=== PATIENT | male | born 1965 | race Caucasian/White ===

== ENCOUNTER 2019-10-21 02:40 | Observation (INO) ==
[2019-10-21 03:00] VITALS: BMI 29.1
[2019-10-21] MEDS ORDERED: CARDIZEM INJ 50 MG VIAL IVP ONE (03:08)
[2019-10-21] MEDS ORDERED: CARDIZEM INJ 50 MG VIAL ONE (03:12)
[2019-10-21] MEDS ORDERED: NS 1000 ML 1,000 ML ONE (03:13)
--- NOTE | 2019-10-21 03:17 | DR.MBACK ---
HPI - Time Seen Time seen: 03:07 - PCP Primary Care Physician: NFD - Complaint Chief Complaint Doctors Comments: Patient is complaining of sharp Left back and CVA pain getting progressively worst with the pain coming and going. States the pain is 9 of 10. States he has no local doctor and he has not gone to see a doctor in 5-7 years. States he is not taking any medicines. He denies tobacco use but states he drinks about five beers daily but denies drug use. He denies chest pain, SOB, nausea, vomiting or any recent trauma. He denies dysuria or hematuria. He denies cold or cough. States he woke up three hours ago with sharp left side pain with soreness in the upper part of his stomach. States he has some red bumps that his thinks is shingles. States he is not taking any medicines. Chief Complaint:: PT STATES" MY LT SIDE IS HURTING BAD IT FEELS REAL SORE AND I HAVE SHARP PAINS I GOT A RASH ON MY STOMACH NOT SURE WHAT IT IS" - Reviewed Nurses Notes Review: Yes - Source History Provided: Patient - Mode of Arrival Mode of Arrival: Ambulatory - Timing Onset of Chief Complaint: 10/19/19 - Duration Duration: Constant How lon Duration: Hours - Location Back Pain Location: Left, Flank Radiation To: None - Severity Severity: Moderate, Severe - Quality Quality: Sharp - Context Onset: Spontaneous Circumstance: Unknown History of: None - Modifying Factors Worsened By: None - Associated Signs and Symptoms Back Pain Symptoms: None Numbness: None Weakness: None PMH - PMH Past Medical History: No Past Surgical History: Yes Surgical History: Ortho Surgery - Family History History of Family Medical Conditions: No - Social History Type of Tobacco Use: None Does any household member use tobacco: No Alcohol Use: Occasionally Do you use any recreational Drugs:: No Lives With: Family Lives Where: Home - Travel Risk Coronavirus risk:travel/contact w/high risk person: No Has patient experienced Coronavirus symptoms: No - infectious screening Have you traveled outside the country in the last 6 months?: No Isolation: Standard ROS - Review of Systems Constitutional: No Symptoms Reported Eyes: No Symptoms Reported. negative: See HPI, Eye Pain, Blurred Vision, Tearing, Discharge, Photophobia, Diplopia, Other ENTM: No Symptoms Reported Respiratoy: No Symptoms Reported Cardiovascular: No Symptoms Reported Gastrointestinal/Abdominal: No Symptoms Reported, Abdominal Pain (LUQ pain on palpation). negative: See HPI, Constipation, Diarrhea, Nausea, Vomiting, Food Intolerance, Other Genitourinary: No Symptoms Reported Neurological: No Symptoms Reported Musculoskeletal: No Symptoms Reported, Back Pain, Left Integumentary: No Symptoms Reported, Lesions (red papules). negative: See HPI, Change in Color, Change in Hair/Nails, Dryness, Lumps, Rash, Itching, Wound, Bruises, Juandice, Other Hematologic/Lymphatic: No Symptoms Reported. negative: See HPI, Anemia, Blood Clots, Easy Bleeding, Easy Bruising, Swollen Glands, Lymphadenopathy, Other Endocrine: No Symptoms Reported Psychiatric: No Symptoms Reported. negative: See HPI, Anxiety, Depression, Hallucinations, Excessive crying, Suicidal, Other PE - General Limitations: No Limitations General Appearance: Alert, In Distress (moderate) - Head Head Exam: Normal Inspection, Atraumatic, Normocephalic - Eyes Eye exam: Normal Appearance, PERRL, EOMI. negative: Scleral Icterus, Conjunctival Injection, Nystagmus, Miosis, Mydrasis, Periorbital Swelling, Periorbital Tenderness, Other - ENT ENT Exam: Normal Exam, Normal Oropharynx, Normal External Ear Exam, Mucous Membranes Moist, TM's Normal Bilaterally - Chest Chest Inspection: Normal Inspection, Symmetric Chest Wall Rise. negative: Tenderness, Rash, Abscess, Other - Respiratory Respiratory Exam: Normal Lung Sounds Bilat. negative: Accessory Muscle Use, Chest Wall Tenderness, Prolonged Expiratory Phase, Respiratory Distress, Stridor, Other Respiratory Exam: Bilateral Clear to Auscultation - Cardiovascular Cardiovascular Exam: Regular Rate, Normal Rhythm, Tachycardia, Irregular Rhythm, Normal Heart Sounds - Abdominal Exam Abdominal Exam: Normal Inspection, Normal Bowel Sounds, Soft, Tenderness (left upper quadrant and left CVA tenderness). negative: Distention, Guarding, Rebound, Rigidity, Dimnished Bowel Sounds, Hyperactive Bowel Sounds, Hypoactive Bowel Sounds, Organomegaly, Trauma, Incision, Ascites, Mass, Bruit, Pulsatile Mass, Hernia, Other Abdominal Tenderness: LUQ, Moderate - Rectal Rectal Exam: Deferred - Genitourinary Exam: Male: Deferred - Extremities Extremities Exam: Normal Inspection, Full ROM, Normal Capillary Refill. negative: Tenderness, Edema, Joint Swelling, Calf Tenderness, Other - Back Back Exam: Normal Inspection, Full ROM, Tenderness (left mid back tenderness; crop red papules), (L) CVA Tenderness. negative: (R) CVA Tenderness, Muscle Spasm, Paraspinal Tenderness, Vertebral Tenderness, Rashes, (R) Sciatic Notch Tenderness, (L) Sciatic Notch Tendern, (R) Straight Leg Raise, (L) Straight Leg Raise, Other - Neurological Neurological Exam: Alert, Oriented X3, CN II-XII Intact, Normal Gait, Reflexes Normal - Psychiatric Psychiatric Exam: Normal Affect, Normal Mood. negative: Depressed, Agitated, Anxious, Flat Affect, Manic, Homicidal Ideation, Suicidal Ideation, Other - Skin Skin Exam: Warm, Dry, Intact, Normal Color, Rash (left mid back and hypogastric area with red papules) - Vital Signs Vitals: Temperature 98.2 F Pulse Rate [Right] 58 Pulse Rate 105 Respiratory Rate 18 Blood Pressure [Right Arm] 139/85 Blood Pressure 168/123 O2 Sat by Pulse Oximetry 98 Course - Reevaluation 1st: Improved - Consultation Called: 06:03 Call Returned: 06:03 (Dr. Dominguez to admit) - Education/Counseling Education/Counseling: Patient, Family Educated On: Treatment, Diagnosis, Needs for Follow Up ROR - Labs Reviewed Laboratory Results Reviewed?: Yes (All lab and x-ray results reviewed and dis cussed with patient.) Result Diagrams: 10/21/19 03:09 10/21/19 03:09 - XRAY XRAY Interpreted by: Radiologist (CT abdomen and pelvis: 2mm stone in the left UVJ causing mild left sided obstructive uropathy. Appendix is normal), Both (CXR: No focal consolidation is seen.) - EKG Rate: 155 [place]: Normal Rhythm: ST, Afib Block: None Hypertrophy: None ST: Nonsp - Labs Reviewed Laboratory: WBC 8.6 X10^3/uL (3.6-10.0) 10/21/19 03:09 RBC 5.47 X10^6/uL (4.7-6.0) 10/21/19 03:09 Hgb 16.0 g/dL (13.5-18.0) 10/21/19 03:09 Hct 46.2 % (42.0-54.0) 10/21/19 03:09 MCV 84.5 fL (80.0-100.0) 10/21/19 03:09 MCH 29.2 pg (27.0-34.0) 10/21/19 03:09 MCHC 34.6 g/dL (33.0-35.0) 10/21/19 03:09 RDW 13.6 % (11.6-16.5) 10/21/19 03:09 Plt Count 232 X10^3/uL (150.0-450.0) 10/21/19 03:09 MPV 7.6 fL (7.4-11.0) 10/21/19 03:09 Neut % (Auto) 60.6 % (42.0-75.0) 10/21/19 03:09 Lymph % (Auto) 28.8 % (21.0-51.0) 10/21/19 03:09 [place] % (Auto) 7.3 % (0.0-13.0) 10/21/19 03:09 Eos % (Auto) 1.3 % (0.9-2.9) 10/21/19 03:09 Baso % (Auto) 2.0 % (0.2-1.0) H 10/21/19 03:09 Neut # (Auto) 5.2 x10^3/uL (2.2-4.8) H 10/21/19 03:09 Lymph # (Auto) 2.5 X10^3/uL (1.3-2.9) 10/21/19 03:09 [place] # (Auto) 0.6 x10^3/uL (0.3-0.8) 10/21/19 03:09 Eos # (Auto) 0.1 x10^3/uL (0.0-0.2) 10/21/19 03:09 Baso # (Auto) 0.2 X10^3/uL (0.0-0.1) H 10/21/19 03:09 Absolute Nucleated RBC 0.1 /100WBC 10/21/19 03:09 PT 12.1 SECONDS (11.8-14.3) 10/21/19 03:09 INR Target Range - 10/21/19 03:09 INR 0.92 (0.8-1.3) 10/21/19 03:09 APTT 28.0 SECONDS (22.9-36.5) 10/21/19 03:09 PTT Comment - 10/21/19 03:09 D-Dimer < 100 ng/mL (0-400) 10/21/19 03:09 Sodium 137 mmol/L (136-145) 10/21/19 03:09 Corrected Sodium TNP 10/21/19 03:09 Potassium 3.8 mmol/L (3.5-5.1) 10/21/19 03:09 Chloride 100 mmol/L (98-107) 10/21/19 03:09 Carbon Dioxide 28.6 mmol/L (21-32) 10/21/19 03:09 BUN 9 mg/dL (7-18) 10/21/19 03:09 Creatinine 1.13 mg/dL (0.70-1.30) 10/21/19 03:09 Est GFR (MDRD) Af Amer > 60 (>60) 10/21/19 03:09 Est GFR (MDRD) Non-Af > 60 (>60) 10/21/19 03:09 Glucose 97 mg/dL (65-99) 10/21/19 03:09 Calcium 8.6 mg/dL (8.5-10.1) 10/21/19 03:09 Corrected Calcium TNP 10/21/19 03:09 Magnesium 1.7 mg/dL (1.7-2.9) 10/21/19 03:09 Total Bilirubin 0.50 mg/dL (0.2-1.0) 10/21/19 03:09 AST 21 Units/L (15-37) 10/21/19 03:09 ALT 39 Units/L (12-78) 10/21/19 03:09 Alkaline Phosphatase 84 Units/L (46-116) 10/21/19 03:09 Creatine Kinase 73 Units/L (39-308) 10/21/19 03:09 CK-MB (CK-2) 1.0 ng/mL (0-4.0) 10/21/19 03:09 CK/CKMB % Calc 1.4 % (<4) 10/21/19 03:09 Troponin I < 0.02 ng/mL (0-1.5) 10/21/19 03:09 Total Protein 7.0 g/dL (6.4-8.2) 10/21/19 03:09 Albumin 3.7 g/dL (3.4-5.0) 10/21/19 03:09 Globulin 3.3 g/dL (2.5-4.5) 10/21/19 03:09 Albumin/Globulin Ratio 1.1 Ratio (1.1-2.1) 10/21/19 03:09 Triglycerides 176 mg/dL (0-150) H 10/21/19 03:09 Cholesterol 198 mg/dL (0-200) 10/21/19 03:09 LDL Cholesterol, Calc 105 mg/dL (0-100) H 10/21/19 03:09 HDL Cholesterol 58 mg/dL (40-60) 10/21/19 03:09 Cholesterol/HDL Ratio 3.4 (0.0-5.0) 10/21/19 03:09 Amylase 24 Units/L (25-115) L 10/21/19 03:09 Lipase 79 Units/L (73-393) 10/21/19 03:09 Ethyl Alcohol mg/dL 14 mg/dL (0-19.9) 10/21/19 03:09 Opioid - Opioid Risk Tool Age (Des box if 16-45): No History of Preadolescent Sexual Abuse: No Total: 0 Total Score Risk Category: Low Risk - Diagnosis Discharge Problem: Atrial fibrillation with rapid ventricular response, Accelerated hypertension, Left renal stone, Alcohol abuse, Obstructive uropathy Shingles Qualifiers: Herpes zoster complications: without complications Qualified Code(s): B02.9 - Zoster without complications - Discharge Plan Disposition: ADMITTED INPATIENT Condition: Stable - Follow ups/Referrals Follow ups/Referrals: NFD,None [Primary Care Provider] - 3 days - Instructions Forms: Excuse From Work, Precautions for COVID19, Patient Portal, Social Distancing
[2019-10-21] MEDS: NS 1000 ML 1,000 ML IV SCH ×4 (03:21→22:11)
[2019-10-21 03:26] LABS: BASOPHILS # (AUTO) 0.2 X10^3/uL (0.0-0.1); EOSINOPHILS # (AUTO) 0.1 x10^3/uL (0.0-0.2); EOSINOPHILS % (AUTO) 1.3 % (0.9-2.9); HEMATOCRIT 46.2 % (42.0-54.0); LYMPHOCYTES # (AUTO) 2.5 X10^3/uL (1.3-2.9); LYMPHOCYTES % (AUTO) 28.8 % (21.0-51.0); MEAN CORPUSCULAR HEMOGLOBIN 29.2 pg (27.0-34.0); MEAN CORPUSCULAR HGB CONC 34.6 g/dL (33.0-35.0); MEAN CORPUSCULAR VOLUME 84.5 fL (80.0-100.0); MEAN PLATELET VOLUME 7.6 fL (7.4-11.0); MONOCYTES # (AUTO) 0.6 x10^3/uL (0.3-0.8); MONOCYTES % (AUTO) 7.3 % (0.0-13.0); NEUTROPHILS # (AUTO) 5.2 x10^3/uL (2.2-4.8); NEUTROPHILS % (AUTO) 60.6 % (42.0-75.0); PLATELET COUNT 232 X10^3/uL (150.0-450.0); RED BLOOD COUNT 5.47 X10^6/uL (4.7-6.0); RED CELL DISTRIBUTION WIDTH 13.6 % (11.6-16.5); WHITE BLOOD COUNT 8.6 X10^3/uL (3.6-10.0)
[2019-10-21 03:38] LABS: AMYLASE 24 Units/L (25-115); BLOOD ALCOHOL 14 mg/dL (0-19.9); BLOOD UREA NITROGEN 9 mg/dL (7-18); CALCIUM 8.6 mg/dL (8.5-10.1); CARBON DIOXIDE 28.6 mmol/L (21-32); CHLORIDE 100 mmol/L (98-107); CREATININE 1.13 mg/dL (0.70-1.30); LIPASE 79 Units/L (73-393); SODIUM 137 mmol/L (136-145); TROPONIN I < 0.02 ng/mL (0-1.5); eGFR NON BLACK RACES > 60 (>60)
[2019-10-21 03:42] LABS: ALANINE AMINOTRANSFERASE 39 Units/L (12-78); ALBUMIN 3.7 g/dL (3.4-5.0); ALKALINE PHOSPHATASE 84 Units/L (46-116); ASPARTATE AMINO TRANSFERASE 21 Units/L (15-37); CHOL/HDL RATIO 3.4 (0.0-5.0); CHOLESTEROL 198 mg/dL (0-200); CKMB % 1.4 % (<4); CREATINE KINASE 73 Units/L (39-308); HDL CHOLESTEROL 58 mg/dL (40-60); MAGNESIUM 1.7 mg/dL (1.7-2.9); TRIGLYCERIDES 176 mg/dL (0-150)
--- NOTE | 2019-10-21 03:47 | CT ---
STUDY: CT ABDOMEN AND PELVIS WITHOUT IV CONTRASTCOMPARISON: NoneTECHNIQUE: Axial images were obtained of the abdomen and pelvis without IV contrast. Sagittal and coronal reformatted images were provided. All images were reviewed in a variety of windows and levels.RADIATION REDUCTION TECHNIQUE: Automated exposure control, adjustment of the mA or kV according to patient size, or iterative reconstruction techniques were used.HISTORY: luq painFINDINGS:Please note that lack of IV contrast does limit evaluation of the soft tissues and vascular detail.The visualized lower lung zones are clear. The heart size is normal.The liver, gallbladder, spleen, pancreas, adrenal glands, and kidneys are grossly unremarkable.There is a 2 mm stone in the left UVJ causing mild left-sided obstructive uropathy.The stomach, small bowel, and colon are grossly unremarkable. A few scattered diverticula are seen without evidence of diverticulitis. There are no inflammatory changes in the right lower quadrant to suggest secondary signs of acute appendicitis. The appendix is normal.There is no evidence of retroperitoneal or mesenteric lymphadenopathy.The visualized bones demonstrate degenerative changes. There are no concerning lytic or blastic lesions identified.IMPRESSION:1. 2 mm stone in the left UVJ is seen causing mild left-sided obstructive uropathy2. The appendix is normal3. There is no CT evidence of diverticulitisElectronically signed by: Grey Tompkins (Oct 21, 2019 03:45:39)
--- NOTE | 2019-10-21 03:47 | RAD ---
STUDY: FRONTAL VIEW CHESTCOMPARISON: NoneHISTORY: chest painFINDINGS:Subsegmental atelectasis is noted.No focal consolidation is seen.The heart size is magnified on this portable technique but without radiographic evidence of pulmonary edemaThe mediastinum is unremarkable.There is no evidence of pleural effusion or gross pneumothorax.The trachea is midline.IMPRESSION:1. No focal consolidation is seen.Electronically signed by: Grey Tompkins (Oct 21, 2019 03:46:22)
[2019-10-21] MEDS ORDERED: TORADOL 30 MG VIAL ONE (04:43)
[2019-10-21] MEDS: TORADOL 30 MG VIAL IVP ONE ×2 (04:47→04:48)
[2019-10-21 07:54] LABS: CKMB % 1.7 % (<4); CREATINE KINASE 58 Units/L (39-308); CREATINE KINASE MB < 1.0 ng/mL (0-4.0); TROPONIN I < 0.02 ng/mL (0-1.5)
[2019-10-21] MEDS: ASPIRIN PO SCH (09:08)
[2019-10-21] MEDS: VALTREX PO SCH ×3 (09:08→21:10)
--- NOTE | 2019-10-21 09:17 | DR.H&P ---
H&P History & Physical for Day of: H&P Date: 10/21/19 Chief Complaint Chief Complaint: Left back pain Allergies Allergies Allergy/AdvReac Type Severity Reaction Status Date / Time codeine Allergy Verified 10/21/19 03:20 Sulfa (Sulfonamide Allergy Verified 10/21/19 03:20 Antibiotics) [SULFA] History of Present Illness History of Present Illness: Pt is a 54 yo m w/ no pmhx presenting after having left sided back pain x 2 days. Initial labs/imaging: Wbc 8.6, Hgb 16, Plt 232, Cr 1.13, EtOH 14, CXR:negative, CTAP:1. 2 mm stone in the left UVJ is seen causing mild left-sided obstructive uropathy 2. The appendix is normal 3. There is no CT evidence of diverticulitis. -Will start pt on Flomax and increase IVF to 125ml/h. Ekg initially showed Afib w/ RVR, however review appears to be Atrial flutter that has now converted to NSR after repeat ekg. Possibly d/t pain. Pt denied any cardiopulmonary sx and troponin negative. He is hypertensive, will start on amlodipine. He has shingles on his stomach and back and is started on Valtrex. Will add triamcinolone cream. Continue to monitor and follow up labs in the morning. Past Surgical History Surgical History: Ortho Surgery Social History Type of Tobacco Use: None Does any household member use tobacco: No Alcohol Use: Occasionally Medications Home Medications: codeine Allergy (Verified 10/21/19 03:20) Sulfa (Sulfonamide Antibiotics) [SULFA] Allergy (Verified 10/21/19 03:20) CONTINUE taking the following medications NK 10/21/19 [History] Labs Result Diagrams: 10/21/19 03:09 10/21/19 03:09 Labs: Laboratory WBC 8.6 X10^3/uL (3.6-10.0) 10/21/19 03:09 RBC 5.47 X10^6/uL (4.7-6.0) 10/21/19 03:09 Hgb 16.0 g/dL (13.5-18.0) 10/21/19 03:09 Hct 46.2 % (42.0-54.0) 10/21/19 03:09 MCV 84.5 fL (80.0-100.0) 10/21/19 03:09 MCH 29.2 pg (27.0-34.0) 10/21/19 03:09 MCHC 34.6 g/dL (33.0-35.0) 10/21/19 03:09 RDW 13.6 % (11.6-16.5) 10/21/19 03:09 Plt Count 232 X10^3/uL (150.0-450.0) 10/21/19 03:09 MPV 7.6 fL (7.4-11.0) 10/21/19 03:09 Neut % (Auto) 60.6 % (42.0-75.0) 10/21/19 03:09 Lymph % (Auto) 28.8 % (21.0-51.0) 10/21/19 03:09 [place] % (Auto) 7.3 % (0.0-13.0) 10/21/19 03:09 Eos % (Auto) 1.3 % (0.9-2.9) 10/21/19 03:09 Baso % (Auto) 2.0 % (0.2-1.0) H 10/21/19 03:09 Neut # (Auto) 5.2 x10^3/uL (2.2-4.8) H 10/21/19 03:09 Lymph # (Auto) 2.5 X10^3/uL (1.3-2.9) 10/21/19 03:09 [place] # (Auto) 0.6 x10^3/uL (0.3-0.8) 10/21/19 03:09 Eos # (Auto) 0.1 x10^3/uL (0.0-0.2) 10/21/19 03:09 Baso # (Auto) 0.2 X10^3/uL (0.0-0.1) H 10/21/19 03:09 Absolute Nucleated RBC 0.1 /100WBC 10/21/19 03:09 PT 12.1 SECONDS (11.8-14.3) 10/21/19 03:09 INR Target Range - 10/21/19 03:09 INR 0.92 (0.8-1.3) 10/21/19 03:09 APTT 28.0 SECONDS (22.9-36.5) 10/21/19 03:09 PTT Comment - 10/21/19 03:09 D-Dimer < 100 ng/mL (0-400) 10/21/19 03:09 Sodium 137 mmol/L (136-145) 10/21/19 03:09 Corrected Sodium TNP 10/21/19 03:09 Potassium 3.8 mmol/L (3.5-5.1) 10/21/19 03:09 Chloride 100 mmol/L (98-107) 10/21/19 03:09 Carbon Dioxide 28.6 mmol/L (21-32) 10/21/19 03:09 BUN 9 mg/dL (7-18) 10/21/19 03:09 Creatinine 1.13 mg/dL (0.70-1.30) 10/21/19 03:09 Est GFR (MDRD) Af Amer > 60 (>60) 10/21/19 03:09 Est GFR (MDRD) Non-Af > 60 (>60) 10/21/19 03:09 Glucose 97 mg/dL (65-99) 10/21/19 03:09 Calcium 8.6 mg/dL (8.5-10.1) 10/21/19 03:09 Corrected Calcium TNP 10/21/19 03:09 Magnesium 1.7 mg/dL (1.7-2.9) 10/21/19 03:09 Total Bilirubin 0.50 mg/dL (0.2-1.0) 10/21/19 03:09 AST 21 Units/L (15-37) 10/21/19 03:09 ALT 39 Units/L (12-78) 10/21/19 03:09 Alkaline Phosphatase 84 Units/L (46-116) 10/21/19 03:09 Creatine Kinase 58 Units/L (39-308) 10/21/19 06:54 CK-MB (CK-2) < 1.0 ng/mL (0-4.0) 10/21/19 06:54 CK/CKMB % Calc 1.7 % (<4) 10/21/19 06:54 Troponin I < 0.02 ng/mL (0-1.5) 10/21/19 06:54 Total Protein 7.0 g/dL (6.4-8.2) 10/21/19 03:09 Albumin 3.7 g/dL (3.4-5.0) 10/21/19 03:09 Globulin 3.3 g/dL (2.5-4.5) 10/21/19 03:09 Albumin/Globulin Ratio 1.1 Ratio (1.1-2.1) 10/21/19 03:09 Triglycerides 176 mg/dL (0-150) H 10/21/19 03:09 Cholesterol 198 mg/dL (0-200) 10/21/19 03:09 LDL Cholesterol, Calc 105 mg/dL (0-100) H 10/21/19 03:09 HDL Cholesterol 58 mg/dL (40-60) 10/21/19 03:09 Cholesterol/HDL Ratio 3.4 (0.0-5.0) 10/21/19 03:09 Amylase 24 Units/L (25-115) L 10/21/19 03:09 Lipase 79 Units/L (73-393) 10/21/19 03:09 Ethyl Alcohol mg/dL 14 mg/dL (0-19.9) 10/21/19 03:09 Review of Systems Constitutional: No Symptoms Reported Eyes: No Symptoms Reported ENT: No Symptoms Reported Respiratory: No Symptoms Reported Cardiovascular: No Symptoms Reported Gastrointestinal: Abdominal Pain (Left flank) Genitourinary: No Symptoms Reported Musculoskeletal: Back Pain Skin: No Symptoms Reported Neurological: No Symptoms Reported Physical Exam Vital Signs: Temperature 97.7 F Pulse Rate [Right] 57 Pulse Rate 105 Respiratory Rate 20 Blood Pressure [Right Arm] 189/97 Blood Pressure 168/123 O2 Sat by Pulse Oximetry 100 Oriented: Normal Eyes: Normal Ear: Normal Nose: Normal Throat: Normal Respiratory: Clear Throughout Cardiovascular: Normal : Normal Auscultation: Bowel Sounds: Normal Palpation: Normal Tenderness: LLQ (mild); negative Rebound, Guarding and Rigidity Skin: Vesicular (LLW and L back) Musculoskeletal: Normal Psychiatric: Normal Mood Description: Calm Speech Pattern: Clear Assessment/Plan (1) Atrial flutter: Status: Acute Plan: Converted to NSR after receiving Cardizem bolus 20mg. Repeat Ekg in the morning. (2) Obstructive uropathy: Status: Acute Plan: 2mm left UVJ stone, start Flomax, increase IVF. Strain urine, kidney function wnl (3) Shingles: Qualifiers: Herpes zoster complications: without complications Qualified Code(s): B02.9 - Zoster without complications Status: Acute Plan: Valtrex 1g TID Triamcinolone cream (4) Left renal stone: Status: Acute (5) Accelerated hypertension: Status: Acute Review H&P Reviewed: Yes Patient was examined?: Yes
[2019-10-21] MEDS: FLOMAX PO SCH (11:50)
[2019-10-21] MEDS: NORVASC TAB 10 MG PO SCH (11:50)
[2019-10-21] MEDS: KENALOG CREAM EXT SCH ×2 (11:50→21:19)
[2019-10-21 13:24] LABS: CKMB % 1.9 % (<4); CREATINE KINASE 54 Units/L (39-308); CREATINE KINASE MB < 1.0 ng/mL (0-4.0); TROPONIN I < 0.02 ng/mL (0-1.5)
[2019-10-21 19:36] LABS: BILIRUBIN,URINE NEGATIVE (NEGATIVE); BLOOD/HEMOGLOBIN,URINE NEGATIVE (NEGATIVE); GLUCOSE, URINE NEGATIVE (NEGATIVE); KETONES,URINE NEGATIVE (NEGATIVE); LEUKOCYTE ESTERASE ,URINE NEGATIVE (NEGATIVE); NITRITES,URINE NEGATIVE (NEGATIVE); PROTEIN,URINE NEGATIVE (NEGATIVE); UROBILINOGEN,URINE NORMAL (NORMAL)
[2019-10-21 19:46] LABS: APPEARANCE,URINE CLEAR (CLEAR); COLOR,URINE YELLOW (YELLOW)
[2019-10-21] MEDS: TORADOL TAB PO PRN (20:36)
[2019-10-22] MEDS: NS 1000 ML 1,000 ML IV SCH (05:39)
[2019-10-22] MEDS: VALTREX PO SCH (05:39)
[2019-10-22] MEDS: TORADOL TAB PO PRN (06:24)
[2019-10-22 06:33] LABS: BASOPHILS % (AUTO) 0.7 % (0.2-1.0); EOSINOPHILS # (AUTO) 0.1 x10^3/uL (0.0-0.2); EOSINOPHILS % (AUTO) 2.2 % (0.9-2.9); HEMATOCRIT 41.2 % (42.0-54.0); HEMOGLOBIN 14.3 g/dL (13.5-18.0); LYMPHOCYTES # (AUTO) 1.9 X10^3/uL (1.3-2.9); LYMPHOCYTES % (AUTO) 29.8 % (21.0-51.0); MEAN CORPUSCULAR HEMOGLOBIN 29.9 pg (27.0-34.0); MEAN CORPUSCULAR HGB CONC 34.6 g/dL (33.0-35.0); MEAN CORPUSCULAR VOLUME 86.4 fL (80.0-100.0); MEAN PLATELET VOLUME 8.3 fL (7.4-11.0); MONOCYTES # (AUTO) 0.6 x10^3/uL (0.3-0.8); MONOCYTES % (AUTO) 9.7 % (0.0-13.0); NEUTROPHILS # (AUTO) 3.6 x10^3/uL (2.2-4.8); NEUTROPHILS % (AUTO) 57.6 % (42.0-75.0); PLATELET COUNT 192 X10^3/uL (150.0-450.0); RED BLOOD COUNT 4.77 X10^6/uL (4.7-6.0); RED CELL DISTRIBUTION WIDTH 13.5 % (11.6-16.5); WHITE BLOOD COUNT 6.3 X10^3/uL (3.6-10.0)
[2019-10-22 07:13] LABS: BLOOD UREA NITROGEN 9 mg/dL (7-18); CALCIUM 7.9 mg/dL (8.5-10.1); CARBON DIOXIDE 26.4 mmol/L (21-32); CHLORIDE 106 mmol/L (98-107); CREATININE 1.07 mg/dL (0.70-1.30); SODIUM 140 mmol/L (136-145); eGFR NON BLACK RACES > 60 (>60)
[2019-10-22] MEDS: ASPIRIN PO SCH (09:18)
[2019-10-22] MEDS: NORVASC TAB 10 MG PO SCH (09:18)
[2019-10-22] MEDS: KENALOG CREAM EXT SCH (09:18)
[2019-10-22] MEDS: FLOMAX PO SCH (09:18)
[2019-10-22 09:51] VITALS: BP 142/80
--- NOTE | 2019-10-22 11:04 | W.DIS.FURT ---
Summary of Discharge Discharge Summary of Date Date of Exam: 10/22/19 Admission Date Date of Admission: 10/20/19 Admission Diagnosis Hospital Course: Pt is a 54 yo m w/ no pmhx admitted for left nephrolithiasis and atrial flutter that converted after cardizem bolus. CTAP:1. 2 mm stone in the left UVJ is seen causing mild left-sided obstructive uropathy 2. The appendix is normal 3. There is no CT evidence of diverticulitis. -Pt was discharged on Flomax w/ instructions to continue drinking lots of fluids. His renal function remained wnl and d/t size of stone will likely pass spontaneously. Ekg initially showed Afib w/ RVR, however review appeared to be Atrial flutter that converted to NSR after cardizem bolus in ED and repeating ekg. Pt was also diagnosed with hypertension and started on amlodipine. Found to have shingles on his stomach and back and was discharged with Rx Valtrex. Pt discharged in stable condition and instructed to follow up w/ pcp in 1 week. Vital Signs: Vital Signs (72 hours) 10/21/19 02:40 10/21/19 02:50 10/21/19 04:00 Temperature 98.2 F Pulse Rate 105 H Pulse Rate [Right] 149 H 63 Respiratory Rate 24 22 25 H Blood Pressure 168/123 Blood Pressure [Right Arm] 185/118 142/89 O2 Sat by Pulse Oximetry 96 96 95 10/21/19 04:30 10/21/19 04:48 10/21/19 05:00 Temperature Pulse Rate Pulse Rate [Right] 60 62 Respiratory Rate 22 19 20 Blood Pressure Blood Pressure [Right Arm] 144/91 145/92 O2 Sat by Pulse Oximetry 96 96 10/21/19 05:30 10/21/19 06:30 10/21/19 07:00 Temperature Pulse Rate Pulse Rate [Right] 58 L 58 L 57 L Respiratory Rate 18 24 27 H Blood Pressure Blood Pressure [Right Arm] 139/85 150/88 160/87 O2 Sat by Pulse Oximetry 98 97 96 10/21/19 08:00 10/21/19 12:00 10/21/19 16:00 Temperature 97.7 F 98.1 F 98.2 F Pulse Rate Pulse Rate [Right] 57 L 60 72 Respiratory Rate 20 18 20 Blood Pressure Blood Pressure [Right Arm] 189/97 131/83 111/67 O2 Sat by Pulse Oximetry 100 98 96 10/21/19 20:00 10/21/19 20:36 10/21/19 21:36 Temperature 97.6 F Pulse Rate Pulse Rate [Right] 69 Respiratory Rate 20 20 20 Blood Pressure Blood Pressure [Right Arm] 139/78 O2 Sat by Pulse Oximetry 97 10/22/19 00:00 10/22/19 04:00 10/22/19 06:24 Temperature 98 F 98.4 F Pulse Rate Pulse Rate [Right] 66 70 Respiratory Rate 24 20 20 Blood Pressure Blood Pressure [Right Arm] 140/78 153/94 O2 Sat by Pulse Oximetry 97 97 10/22/19 08:00 Temperature 98.0 F Pulse Rate Pulse Rate [Right] 66 Respiratory Rate 20 Blood Pressure Blood Pressure [Right Arm] 142/80 O2 Sat by Pulse Oximetry 98 Labs: Laboratory Last Values WBC 6.3 X10^3/uL (3.6-10.0) 10/22/19 04:53 RBC 4.77 X10^6/uL (4.7-6.0) 10/22/19 04:53 Hgb 14.3 g/dL (13.5-18.0) 10/22/19 04:53 Hct 41.2 % (42.0-54.0) L 10/22/19 04:53 MCV 86.4 fL (80.0-100.0) 10/22/19 04:53 MCH 29.9 pg (27.0-34.0) 10/22/19 04:53 MCHC 34.6 g/dL (33.0-35.0) 10/22/19 04:53 RDW 13.5 % (11.6-16.5) 10/22/19 04:53 Plt Count 192 X10^3/uL (150.0-450.0) 10/22/19 04:53 MPV 8.3 fL (7.4-11.0) 10/22/19 04:53 Neut % (Auto) 57.6 % (42.0-75.0) 10/22/19 04:53 Lymph % (Auto) 29.8 % (21.0-51.0) 10/22/19 04:53 [place] % (Auto) 9.7 % (0.0-13.0) 10/22/19 04:53 Eos % (Auto) 2.2 % (0.9-2.9) 10/22/19 04:53 Baso % (Auto) 0.7 % (0.2-1.0) 10/22/19 04:53 Neut # (Auto) 3.6 x10^3/uL (2.2-4.8) 10/22/19 04:53 Lymph # (Auto) 1.9 X10^3/uL (1.3-2.9) 10/22/19 04:53 [place] # (Auto) 0.6 x10^3/uL (0.3-0.8) 10/22/19 04:53 Eos # (Auto) 0.1 x10^3/uL (0.0-0.2) 10/22/19 04:53 Baso # (Auto) 0.0 X10^3/uL (0.0-0.1) 10/22/19 04:53 Absolute Nucleated RBC 0.0 /100WBC 10/22/19 04:53 PT 12.1 SECONDS (11.8-14.3) 10/21/19 03:09 INR Target Range - 10/21/19 03:09 INR 0.92 (0.8-1.3) 10/21/19 03:09 APTT 28.0 SECONDS (22.9-36.5) 10/21/19 03:09 PTT Comment - 10/21/19 03:09 D-Dimer < 100 ng/mL (0-400) 10/21/19 03:09 Sodium 140 mmol/L (136-145) 10/22/19 04:53 Corrected Sodium TNP 10/22/19 04:53 Potassium 4.2 mmol/L (3.5-5.1) 10/22/19 04:53 Chloride 106 mmol/L (98-107) 10/22/19 04:53 Carbon Dioxide 26.4 mmol/L (21-32) 10/22/19 04:53 BUN 9 mg/dL (7-18) 10/22/19 04:53 Creatinine 1.07 mg/dL (0.70-1.30) 10/22/19 04:53 Est GFR (MDRD) Af Amer > 60 (>60) 10/22/19 04:53 Est GFR (MDRD) Non-Af > 60 (>60) 10/22/19 04:53 Glucose 90 mg/dL (65-99) 10/22/19 04:53 Calcium 7.9 mg/dL (8.5-10.1) L 10/22/19 04:53 Corrected Calcium TNP 10/21/19 03:09 Magnesium 1.7 mg/dL (1.7-2.9) 10/21/19 03:09 Total Bilirubin 0.50 mg/dL (0.2-1.0) 10/21/19 03:09 AST 21 Units/L (15-37) 10/21/19 03:09 ALT 39 Units/L (12-78) 10/21/19 03:09 Alkaline Phosphatase 84 Units/L (46-116) 10/21/19 03:09 Creatine Kinase 54 Units/L (39-308) 10/21/19 12:55 CK-MB (CK-2) < 1.0 ng/mL (0-4.0) 10/21/19 12:55 CK/CKMB % Calc 1.9 % (<4) 10/21/19 12:55 Troponin I < 0.02 ng/mL (0-1.5) 10/21/19 12:55 Total Protein 7.0 g/dL (6.4-8.2) 10/21/19 03:09 Albumin 3.7 g/dL (3.4-5.0) 10/21/19 03:09 Globulin 3.3 g/dL (2.5-4.5) 10/21/19 03:09 Albumin/Globulin Ratio 1.1 Ratio (1.1-2.1) 10/21/19 03:09 Triglycerides 176 mg/dL (0-150) H 10/21/19 03:09 Cholesterol 198 mg/dL (0-200) 10/21/19 03:09 LDL Cholesterol, Calc 105 mg/dL (0-100) H 10/21/19 03:09 HDL Cholesterol 58 mg/dL (40-60) 10/21/19 03:09 Cholesterol/HDL Ratio 3.4 (0.0-5.0) 10/21/19 03:09 Amylase 24 Units/L (25-115) L 10/21/19 03:09 Lipase 79 Units/L (73-393) 10/21/19 03:09 Specimen Type Clean catch urine 10/21/19 19:04 Urine Color Yellow (YELLOW) 10/21/19 19:04 Urine Appearance Clear (CLEAR) 10/21/19 19:04 Urine pH 6.0 (5.0 - 8.0) 10/21/19 19:04 Ur Specific [place] 1.010 (1.000-1.030) 10/21/19 19:04 Urine Protein Negative (NEGATIVE) 10/21/19 19:04 Urine Glucose (UA) Negative (NEGATIVE) 10/21/19 19:04 Urine Ketones Negative (NEGATIVE) 10/21/19 19:04 Urine Occult Blood Negative (NEGATIVE) 10/21/19 19:04 Urine Nitrite Negative (NEGATIVE) 10/21/19 19:04 Urine Bilirubin Negative (NEGATIVE) 10/21/19 19:04 Urine Urobilinogen Normal (NORMAL) 10/21/19 19:04 Ur Leukocyte Esterase Negative (NEGATIVE) 10/21/19 19:04 Urine Opiates Screen Negative (NEG=<300) 10/21/19 19:04 Urine Methadone Screen Negative (NEG=<300) 10/21/19 19:04 Ur Barbiturates Screen Negative (NEG=<200) 10/21/19 19:04 Ur Phencyclidine Scrn Negative (NEG=<25) 10/21/19 19:04 Ur Amphetamines Screen Negative (NEG=<1000) 10/21/19 19:04 U Benzodiazepines Scrn Negative (NEG=<200) 10/21/19 19:04 Urine Cocaine Screen Negative (NEG=<300) 10/21/19 19:04 U Marijuana (THC) Screen Negative (NEG=<50) 10/21/19 19:04 Ethyl Alcohol mg/dL 14 mg/dL (0-19.9) 10/21/19 03:09 Reason For Visit: ATRIAL FIBRILLATION; ACCELERATED HYPERTENSION Discharge Date Discharge Date: 10/22/19 Discharge Diagnosis All Active Problems (Updated 10/21/19 @ 09:46 by Alberto Thompson) Hypertension (Acute) Atrial flutter (Acute) Atrial fibrillation with rapid ventricular response (Acute) Accelerated hypertension (Acute) Left renal stone (Acute) Alcohol abuse (Acute) Shingles (Acute) Obstructive uropathy (Acute) Plan of Treatment: Continue with present treatment and follow up plan. Pt is to keep follow up appointment as instructed and take medications as ordered. Discharge Medications Discharge Medications: codeine Allergy (Verified 10/21/19 03:20) Sulfa (Sulfonamide Antibiotics) [SULFA] Allergy (Verified 10/21/19 03:20) CONTINUE taking the following medications NK 10/21/19 [History] New Prescriptions amlodipine 10 mg PO DAILY 30 Days #30 tab 10/22/19 [Rx] gabapentin 100 mg PO TID PRN 10 Days #30 cap 10/22/19 [Rx] tamsulosin 0.4 mg PO DAILY 30 Days #30 cap 10/22/19 [Rx] triamcinolone acetonide 1 applic EXT BID 30 Days #30 g 10/22/19 [Rx] valacyclovir 1 g PO TID 6 Days #18 tab 10/22/19 [Rx] Follow up and Referral Follow Up: 1 Week Discharge Disposition Discharge Disposition: Home Discharge Condition: Stable
== END 2019-10-22 12:20 | disposition home or self-care (01) ==
LOC: MED/SURG 02:41 → ER 02:41 → MED/SURG 07:27
PROVIDERS: ADMIT Internal Medicine; ATTEND Internal Medicine
CPT/HCPCS: 36415; 71010; 71045; 74176; 80048; 80053; 80061; 80307; 80320; 81003; 82150; 82550; 82553; 83690; 83735; 84484; 85025; 85378; 85610; 85730; 93005; 94760; 96360; 96361; 96365; 96367; 96374; 96375; 99284; A4216; A4222; G0378; J1885; J3490; J7030